=== PATIENT | female | born 1965 | race Caucasian/White ===

== ENCOUNTER 2022-08-29 17:02 | Observation (INO) ==
[2022-08-29] MEDS ORDERED: 0.9 % Sodium Chloride 1,000 ML IVC ONE (17:48)
[2022-08-29 18:08] LABS: Basophils % 0.9 %; Eosinophils % 0.3 %; Hematocrit 36.4 % (35.3-44.9); Hemoglobin 12.8 g/dL (11.5-15.4); Immature Granulocytes % 1.5 % (0-4); Lymphocytes # 0.6 K/mcL (0.6-4.6); Lymphocytes % 18.8 %; Mean Corpuscular HGB Conc 35.2 g/dL (31.6-35.5); Mean Corpuscular Volume 99.5 fL (83.0-100.0); Mean Platelet Volume 11.6 fL (9.4-12.4); Monocytes # 0.7 K/mcL (0.0-1.3); Platelet Count 129 K/mcL (140-400); Red Blood Count 3.66 M/mcL (3.82-4.97); Red Cell Distribution Width 15.7 % (11.5-14.5); Segmented Neutrophils % 58.5 %; White Blood Count 3.4 K/mcL (4.3-11.1)
[2022-08-29 18:18] LABS: Bilirubin,Urine Small (Negative); Blood,Urine Moderate (Negative); Clarity,Urine Slightly Cloudy (Clear); Color,Urine Yellow (Yellow); Glucose,Urine (UA) Normal (Normal); Ketones,Urine 40 mg/dL (Negative); Leukocyte Esterase,Urine Small (Negative); Nitrite,Urine Negative (Negative); PH,Urine 5.5 pH Units (5.0-8.0); Protein,Urine Negative (Neg-Trace); Specific Gravity,Urine <= 1.005 (1.010-1.025); Urobilinogen,Urine Normal (Normal)
[2022-08-29 18:27] LABS: Albumin 4.4 g/dL (3.5-5.7); Albumin/Globulin Ratio 1.3 (1.1-2.2); Bilirubin,Direct 0.2 mg/dL (0.0-0.2); Bilirubin,Indirect 0.8 mg/dL (0.0-1.0); Calcium 9.6 mg/dL (8.6-10.3); Globulin 3.3 g/dL (2.4-3.5); Potassium 3.5 mEq/L (3.5-5.1); Total Protein 7.7 g/dL (6.4-8.9)
[2022-08-29 18:28] LABS: Bacteria,Urine Moderate per hpf (None-Few); Squamous Epithelial Cell,Urine Few per hpf (None-Few)
[2022-08-29 18:32] LABS: Platelet Estimate Slight Decrease (Normal)
[2022-08-29 18:34] LABS: Troponin I 0.09 ng/mL (< 0.04)
[2022-08-29] MEDS: 0.9 % Sodium Chloride 1,000 ML IVC SCH (19:24)
[2022-08-29] MEDS ORDERED: Ondansetron 4 MG/2 ML VIAL IVP PRN (23:26)
[2022-08-29] MEDS ORDERED: Naloxone 0.4 MG/ML INJ IVP PRN (23:26)
[2022-08-29] MEDS ORDERED: Melatonin 3 MG TABLET PO PRN (23:26)
[2022-08-29] MEDS ORDERED: Acetaminophen 325 MG TABLET PO PRN (23:26)
[2022-08-29] MEDS ORDERED: *HR* HYDROcodone/Acet 5/325 mg TABLET PO PRN (23:26)
[2022-08-30] MEDS: 0.9 % Sodium Chloride 1,000 ML IVC SCH (02:00)
[2022-08-30 06:00] LABS: Basophils % 0.4 %; Eosinophils % 0.2 %; Hematocrit 32.2 % (35.3-44.9); Hemoglobin 10.9 g/dL (11.5-15.4); Immature Granulocytes % 1.4 % (0-4); Lymphocytes % 20.8 %; Mean Corpuscular HGB Conc 33.9 g/dL (31.6-35.5); Mean Corpuscular Hemoglobin 34.5 pg (28.0-33.3); Mean Corpuscular Volume 101.9 fL (83.0-100.0); Mean Platelet Volume 11.4 fL (9.4-12.4); Monocytes # 0.9 K/mcL (0.0-1.3); Monocytes % 17.5 %; Neutrophils # 2.9 K/mcL (1.6-8.9); Platelet Count 124 K/mcL (140-400); Red Blood Count 3.16 M/mcL (3.82-4.97); Red Cell Distribution Width 16.3 % (11.5-14.5); Segmented Neutrophils % 59.7 %; White Blood Count 4.9 K/mcL (4.3-11.1)
[2022-08-30 06:07] LABS: INR 1.3; Prothrombin Time 14.4 Seconds (9.4-12.1)
[2022-08-30 06:09] LABS: Activated Partial Thrombo Time 25.3 Seconds (26.0-36.0)
[2022-08-30 06:17] LABS: Chol/HDL Ratio 14.8 (0-4.9)
[2022-08-30 06:18] LABS: Albumin 3.6 g/dL (3.5-5.7); Albumin/Globulin Ratio 1.3 (1.1-2.2); Bilirubin,Total 0.6 mg/dL (0.3-1.0); Calcium 8.6 mg/dL (8.6-10.3); Globulin 2.8 g/dL (2.4-3.5); Magnesium 1.6 mg/dL (1.6-2.6); Phosphorous 2.7 mg/dL (2.7-4.5); Potassium 3.4 mEq/L (3.5-5.1); Total Protein 6.4 g/dL (6.4-8.9)
[2022-08-30] MEDS ORDERED: Dextrose Gel 15 GM/37.5 ML TUBE PO PRN ×2 (06:52)
[2022-08-30] MEDS ORDERED: D5% in Water 1,000 ML IVC PRN (06:52)
[2022-08-30] MEDS ORDERED: *HR* Dextrose 50 % in Water (Syg) 50 ML SYRINGE IVP PRN (06:52)
[2022-08-30 07:08] LABS: Anisocytosis 1+ (Not Present); Macrocytosis Present (Not Present); Platelet Estimate Slight Decrease (Normal)
[2022-08-30] MEDS ORDERED: 0.9 % Sodium Chloride 1,000 ML IVC SCH (12:15)
[2022-08-30] MEDS: Mirtazapine 15 MG TABLET PO SCH ×2 (14:07→17:17)
[2022-08-30] MEDS ORDERED: dexAMETHasone 4 MG TABLET PO SCH (17:00)
[2022-08-30] MEDS ORDERED: Mirtazapine 15 MG TABLET PO SCH (21:00)
[2022-08-30] MEDS: Ondansetron ODT 4 MG TAB.RAPDIS SL SCH ×2 (21:29→23:44)
[2022-08-30] MEDS: Gabapentin 100 MG CAPSULE PO SCH (21:30)
[2022-08-30] MEDS ORDERED: cefTRIAXone 1,000 MG in 0.9 % Sodium Chloride Mini Bag 100 ML IVPB SCH (22:00)
[2022-08-31] MEDS: Ondansetron ODT 4 MG TAB.RAPDIS SL SCH ×2 (04:20→11:03)
[2022-08-31] MEDS ORDERED: *HR* Enoxaparin 40 MG/0.4 ML SYRINGE SQ SCH (06:00)
[2022-08-31 06:58] VITALS: RESP 18; TEMP 98.1
[2022-08-31 08:24] LABS: Basophils % 0.5 %; Hematocrit 31.7 % (35.3-44.9); Hemoglobin 10.6 g/dL (11.5-15.4); Immature Granulocytes % 2.2 % (0-4); Lymphocytes # 1.3 K/mcL (0.6-4.6); Lymphocytes % 15.7 %; Mean Corpuscular HGB Conc 33.4 g/dL (31.6-35.5); Mean Corpuscular Hemoglobin 34.8 pg (28.0-33.3); Mean Corpuscular Volume 103.9 fL (83.0-100.0); Mean Platelet Volume 11.9 fL (9.4-12.4); Monocytes # 0.8 K/mcL (0.0-1.3); Monocytes % 9.4 %; Platelet Count 129 K/mcL (140-400); Red Blood Count 3.05 M/mcL (3.82-4.97); Red Cell Distribution Width 16.6 % (11.5-14.5); Segmented Neutrophils % 72.2 %; White Blood Count 8.3 K/mcL (4.3-11.1)
[2022-08-31 08:40] LABS: Calcium 8.7 mg/dL (8.6-10.3); Potassium 3.3 mEq/L (3.5-5.1)
[2022-08-31 09:21] LABS: Anisocytosis 1+ (Not Present); Platelet Estimate Decreased (Normal)
[2022-08-31 10:51] VITALS: BP 102/64; PULSE 88; O2SAT 95
[2022-08-31] MEDS: Gabapentin 100 MG CAPSULE PO SCH (11:03)
[2022-08-31] MEDS ORDERED: Potassium Chloride Elixir 20 MEQ/15 ML UDC PO ONE (11:31)
[2022-08-31 21:11] LABS: % Iron Saturation 36 % (15-50); Iron 83 mcg/dL (50-170); Transferrin 164 mg/dL (203-362)
[2022-08-31 21:37] LABS: Folate 10.1 ng/mL (3.0-16.0)
== END 2022-08-31 12:05 | disposition home or self-care (01) ==
LOC: EMEROOPIK 17:02 → INPPIK 17:02 → SUATTDRO 22:36 → INPPIK 23:06
PROVIDERS: ADMIT Internal Medicine; ATTEND Internal Medicine